=== PATIENT | male | born 1995 | race African-American/Black ===

== ENCOUNTER 2017-03-05 18:47 | Emergency (ER) | payer MEDICAID ==
[~2017-03-05] VITALS: Ht 175.3 cm; Wt 70.0 kg
[2017-03-05 18:56] VITALS: BP 129/80
== END 2017-03-06 02:12 | disposition left against medical advice (07) ==
LOC: ER 20:10
DX: Z53.21 Procedure and treatment not carried out due to patient leaving prior to being seen by health care provider (principal)

== ENCOUNTER 2017-08-31 14:25 | Emergency (ER) | payer MEDICAID ==
[~2017-08-31] VITALS: Ht 175.3 cm; Wt 74.0 kg
[2017-08-31 14:34] VITALS: BP 138/93
== END 2017-08-31 17:56 | disposition left against medical advice (07) ==
LOC: ER 14:57
DX: Z53.21 Procedure and treatment not carried out due to patient leaving prior to being seen by health care provider (principal)

== ENCOUNTER 2018-02-04 01:44 | Emergency (ER) | payer MEDICAID ==
[~2018-02-04] VITALS: Ht 170.2 cm; Wt 66.0 kg
[2018-02-04] MEDS ORDERED: IPRATROPIUM BROMIDE (0.02%) 0.5MG/2.5ML NEB HHN STA (05:03)
[2018-02-04] MEDS ORDERED: IBUPROFEN 600MG TABLET PO NR (05:03)
[2018-02-04] MEDS ORDERED: ALBUTEROL (0.083%) 2.5MG/3ML NEB HHN STA (05:03)
[2018-02-04 06:33] VITALS: BP 128/64
== END 2018-02-04 06:35 | disposition home or self-care (01) ==
LOC: ER 01:44
DX: J45.909 Unspecified asthma, uncomplicated (principal); M94.0 Chondrocostal junction syndrome [Tietze]; Z20.2 Contact with and (suspected) exposure to infections with a predominantly sexual mode of transmission; F12.10 Cannabis abuse, uncomplicated
CPT/HCPCS: 94640; 99283; J7611

== ENCOUNTER 2018-07-31 07:43 | Emergency (ER) | payer SELFPAY ==
[~2018-07-31] VITALS: Ht 175.3 cm; Wt 73.0 kg
[2018-07-31] MEDS ORDERED: KETOROLAC 60MG/2ML VIAL IM STA (08:32)
[2018-07-31] MEDS ORDERED: METOCLOPRAMIDE HCL 10MG/2ML VIAL IM ONE (08:45)
[2018-07-31 08:56] LABS: CLARITY URINE CLEAR (CLEAR); COLOR URINE YELLOW (YELLOW); KETONES URINE NEGATIVE (NEGATIVE); LEUKOCYTE ESTERASE URINE 1+ (NEGATIVE); NITRITE URINE NEGATIVE (NEGATIVE); OCCULT BLOOD URINE NEGATIVE (NEGATIVE); PH URINE 5.5 (4.5-8.0); PROTEIN URINE NEGATIVE (NEGATIVE); SPECIFIC GRAVITY URINE 1.024 (1.005-1.030)
[2018-07-31] MEDS ORDERED: CEFTRIAXONE SODIUM 250 MG/VIAL IM ONE (10:00)
[2018-07-31] MEDS ORDERED: AZITHROMYCIN 500 MG TABLET PO ONE (10:00)
[2018-07-31] MEDS ORDERED: LIDOCAINE HCL/PF 1% 10 MG/ML 5ML VIAL IJ ONE (10:00)
[2018-07-31 10:50] VITALS: BP 110/84
== END 2018-07-31 10:55 | disposition home or self-care (01) ==
LOC: ER 07:43
DX: G44.89 Other headache syndrome (principal); G43.909 Migraine, unspecified, not intractable, without status migrainosus; N34.2 Other urethritis; J45.909 Unspecified asthma, uncomplicated; F12.10 Cannabis abuse, uncomplicated
CPT/HCPCS: 81003; 87086; 96372; 99283; J0696; J1885; J2765; J3490

== ENCOUNTER 2018-09-23 23:11 | Emergency (ER) | payer SELFPAY ==
[~2018-09-23] VITALS: Ht 175.3 cm; Wt 66.0 kg
[2018-09-24 06:31] VITALS: BP 121/81
== END 2018-09-24 06:31 | disposition left against medical advice (07) ==
LOC: ER 23:11
DX: B35.9 Dermatophytosis, unspecified (principal); F12.10 Cannabis abuse, uncomplicated; Z90.49 Acquired absence of other specified parts of digestive tract; Z53.21 Procedure and treatment not carried out due to patient leaving prior to being seen by health care provider

== ENCOUNTER 2018-11-03 01:11 | Emergency (ER) | payer SELFPAY ==
[~2018-11-03] VITALS: Ht 175.3 cm; Wt 73.0 kg
[2018-11-03] MEDS ORDERED: IBUPROFEN 600MG TABLET PO ONE (04:45)
[2018-11-03 06:19] VITALS: BP 137/87
== END 2018-11-03 06:20 | disposition home or self-care (01) ==
LOC: ER 01:11
DX: J02.9 Acute pharyngitis, unspecified (principal)
CPT/HCPCS: 87070; 87430; 99282